=== PATIENT | male | born 1960 | race Caucasian/White ===

== ENCOUNTER 2017-05-08 12:31 | Outpatient (CLI) | payer OTHER | END 2017-05-08 12:35 | disposition home or self-care (01) | LOC: LAB 12:31 | DX: N20.0 Calculus of kidney (principal) ==

== ENCOUNTER 2019-09-15 12:56 | Outpatient (CLI) | payer OTHER | END 2019-09-15 13:02 | disposition home or self-care (01) | LOC: RAD 12:56 | PROVIDERS: ATTEND Urology | DX: N20.0 Calculus of kidney (principal); S62.001D Unspecified fracture of navicular [scaphoid] bone of right wrist, subsequent encounter for fracture with routine healing ==

== ENCOUNTER 2020-12-02 13:22 | Outpatient (CLI) | payer OTHER | END 2020-12-02 13:24 | disposition home or self-care (01) | LOC: RAD 13:22 | PROVIDERS: ATTEND Urology | DX: N20.0 Calculus of kidney (principal) ==

== ENCOUNTER 2021-06-23 12:20 | Outpatient (CLI) | payer OTHER | END 2021-06-23 12:35 | disposition home or self-care (01) | LOC: RAD 12:20 | PROVIDERS: ATTEND General Practice | DX: I10 Essential (primary) hypertension (principal) ==

== ENCOUNTER 2022-11-15 11:26 | Outpatient (CLI) | payer OTHER | END 2022-11-15 11:33 | disposition home or self-care (01) | LOC: RAD 11:26 | PROVIDERS: ATTEND Specialist | DX: R05.3 Chronic cough (principal) ==

== ENCOUNTER 2023-05-02 12:18 | Outpatient (CLI) | payer OTHER | END 2023-05-02 12:26 | disposition home or self-care (01) | LOC: RAD 12:18 | PROVIDERS: ATTEND Urology | DX: N20.0 Calculus of kidney (principal) ==

== ENCOUNTER → 2023-09-25 11:21 | Outpatient (CLI) | payer OTHER | END | disposition home or self-care (01) | LOC: LAB 11:21 | PROVIDERS: ATTEND Urology | DX: R97.20 Elevated prostate specific antigen [PSA] (principal) ==

== ENCOUNTER 2023-10-11 07:14 | Outpatient (CLI) | payer OTHER | END 2023-10-11 07:22 | disposition home or self-care (01) | LOC: SONOGRAMA 07:14 | PROVIDERS: ATTEND Urology | DX: C61 Malignant neoplasm of prostate (principal); N40.1 Benign prostatic hyperplasia with lower urinary tract symptoms; R97.20 Elevated prostate specific antigen [PSA] ==

== ENCOUNTER 2023-10-16 11:56 | Emergency (ER) | payer OTHER ==
[~2023-10-16] VITALS: Ht 170.2 cm; Wt 81.2 kg
[2023-10-16] MEDS ORDERED: AVAPRO75 MG (12:02)
[2023-10-16] MEDS ORDERED: PROTONIX20 MG (12:03)
[2023-10-16] MEDS ORDERED: TAMS0.4C PO (12:03)
[2023-10-16] MEDS ORDERED: DOXAZOSIN MESYLA2 MG PO (12:04)
[2023-10-16 13:03] LABS: HEMOGLOBIN 14.8 g/dL (13-16.00); MEAN CELL VOLUME 88.5 fL (80.0-100.00); MEAN CORPUSCULAR HEMOGLOBIN 30.4 pg (27.00-32.0); MEAN CORPUSCULAR HGB CONC 34.3 g/dl (32.0-36.0); PLATELET COUNT 193 K/uL (150-450); RED BLOOD COUNT 4.86 M/uL (4.00-6.00); RED CELL DISTRIBUTION WIDTH 13.3 % (11.5-14.5)
[2023-10-16 13:15] LABS: URINE APPEARANCE Cloudy; URINE BILIRRUBIN Negative (NEGATIVE); URINE BLOOD Moderate; URINE COLOR Yellow; URINE GLUCOSE Negative (NEGATIVE); URINE KETONE Negative (NEGATIVE); URINE LEUKOCYTE Moderate; URINE NITRATE Positive; URINE PROTEIN Negative (NEGATIVE); URINE UROBILINOGEN 0.2 E.U./dl
[2023-10-16 13:16] LABS: URINE EPITHELIAL CELLS 5.7 uL (0.0-38.8); URINE RBC 62.1 uL (0.0-20.8); URINE WBC 1167.8 uL (0.0-23.2)
[2023-10-16 13:19] LABS: URINE BACTERIA > 9821.5 uL (0.0-1933); URINE CAST 0.61 uL (0.0-1.40)
[2023-10-16 13:25] LABS: CALCIUM 9.8 mg/dL (8.5-10.1); CREATININE SERUM 0.99 mg/dL (0.70-1.30); GFR 76.1; POTASSIUM 4.47 mEq/L (3.5-5.1)
[2023-10-16] MEDS ORDERED: LEVOFLOXACIN750 MG PO (13:54)
== END 2023-10-16 13:59 | disposition home or self-care (01) ==
LOC: ER 11:57
PROVIDERS: General Practice
DX: R53.81 Other malaise (principal); N39.0 Urinary tract infection, site not specified; R50.9 Fever, unspecified; R05.9 Cough, unspecified; Z20.822 Contact with and (suspected) exposure to COVID-19; I10 Essential (primary) hypertension

== ENCOUNTER 2024-01-02 13:20 | Outpatient (CLI) | payer OTHER ==
[~2024-01-02 13:20] MED LIST: AVAPRO75 MG; DOXAZOSIN MESYLA2 MG PO; LEVOFLOXACIN750 MG PO; PROTONIX20 MG; TAMS0.4C PO
== END 2024-01-02 13:58 | disposition home or self-care (01) ==
LOC: RAD 13:20
PROVIDERS: ATTEND Internal Medicine Pulmonary Disease
DX: J45.909 Unspecified asthma, uncomplicated (principal); J31.0 Chronic rhinitis

== ENCOUNTER 2024-01-15 09:57 | Outpatient (CLI) | payer OTHER | END 2024-01-15 09:58 | disposition home or self-care (01) | LOC: NUCLEAR 09:57 | PROVIDERS: ATTEND Urology | DX: C61 Malignant neoplasm of prostate (principal) ==

== ENCOUNTER 2024-02-13 07:30 | Inpatient (IN) | payer OTHER ==
[~2024-02-13] VITALS: Ht 170.2 cm; Wt 85.7 kg
[~2024-02-13 07:30] MED LIST changes: -AVAPRO75 MG; +AVAPRO75 MG PO
[2024-02-13] MEDS ORDERED: DESVENLAFAXINE50 MG PO (08:24)
[2024-02-13] MEDS ORDERED: LAMOTRIGINE100 MG PO (08:24)
[2024-02-13 08:39] LABS: PH,URINE 6.5 (5.0-8.0); URINE APPEARANCE Clear; URINE BILIRRUBIN Negative (NEGATIVE); URINE BLOOD Negative; URINE COLOR Yellow; URINE GLUCOSE Negative (NEGATIVE); URINE KETONE Negative (NEGATIVE); URINE LEUKOCYTE Negative; URINE NITRATE Negative; URINE PROTEIN Negative (NEGATIVE); URINE UROBILINOGEN 0.2 E.U./dl
[2024-02-13 08:42] LABS: URINE RBC 19.2 uL (0.0-20.8); URINE WBC 8.9 uL (0.0-23.2)
[2024-02-13 08:46] LABS: HEMATOCRIT 42.5 % (39.0-48.0); HEMOGLOBIN 14.6 g/dL (13-16.00); MEAN CELL VOLUME 88.2 fL (80.0-100.00); MEAN CORPUSCULAR HEMOGLOBIN 30.3 pg (27.00-32.0); MEAN CORPUSCULAR HGB CONC 34.4 g/dl (32.0-36.0); PLATELET COUNT 202 K/uL (150-450); RED BLOOD COUNT 4.82 M/uL (4.00-6.00); RED CELL DISTRIBUTION WIDTH 13.8 % (11.5-14.5)
[2024-02-13 08:46] LABS: URINE BACTERIA 3.6 uL (0.0-1933); URINE EPITHELIAL CELLS 0.1 uL (0.0-38.8)
[2024-02-13 08:49] VITALS: BP 140/87
[2024-02-13 09:11] LABS: INR 0.97; PARTIAL THROMBOPLASTIN TIME 27.6 SECONDS (22.0-34.0); PROTHROMBIN TIME 10.6 SECONDS (9.0-11.5)
[2024-02-13 09:33] LABS: ALBUMIN 3.9 gm/dL (3.4-5.0); BILIRUBIN TOTAL 0.45 mg/dL (0.3-1.2); CALCIUM 9.4 mg/dL (8.5-10.1); CREATININE SERUM 0.87 mg/dL (0.70-1.30); GFR 88.06; GLOBULINA 3.4 G/DL (2.4-3.5); POTASSIUM 4.16 mEq/L (3.5-5.1); TOTAL PROTEIN 7.3 gm/dL (6.4-8.2)
[2024-02-13 09:43] LABS: RH POSITIVE
[2024-02-21] MEDS ORDERED: DEXTROSE 5 %-0.45 % SOD CHLORD 1,000 ML IV SCH (10:23)
[2024-02-21] MEDS ORDERED: OxyCODONE HCL/APAP UD (PERCOCET) PO PRN (10:30)
[2024-02-21] MEDS ORDERED: CEFAZOLIN SODIUM 1,000 MG in 0.9 % SODIUM CHLORIDE 50 ML IV ONE (12:30)
[2024-02-21] MEDS ORDERED: ENOXAPARIN SODIUM 40 MG/0.4 ML SYRINGE SUBCUTANEO ONE (12:30)
[2024-02-21] MEDS ORDERED: CHLORHEXIDINE GLUCONATE 120 ML BOTTLE TOP ONE (13:00)
[2024-02-21] MEDS ORDERED: CEFAZOLIN SODIUM 1,000 MG VIAL IV SCH (17:00)
[2024-02-21] MEDS ORDERED: SIMETHICONE 125 MG CAPSULE PO SCH (17:00)
[2024-02-21] MEDS ORDERED: DOCUSATE SODIUM 100MG CAP PO SCH (17:00)
[2024-02-21] MEDS ORDERED: ONDANSETRON HCL 2 MG/ML VIAL IV SCH (17:00)
[2024-02-21] MEDS ORDERED: FAMOtidine 20 MG TABLET PO SCH (17:00)
[2024-02-21] MEDS ORDERED: SUGAMMADEX SODIUM 200 MG/2 ML VIAL IV ONE (17:15)
[2024-02-21] MEDS ORDERED: MORPHINE SULFATE 4 MG/ML VIAL IV ONE (17:25)
[2024-02-21 21:56] VITALS: BP 158/74; O2SAT 98
[2024-02-22 01:08] VITALS: BP 143/85; O2SAT 98
[2024-02-22 09:02] VITALS: BP 126/73; O2SAT 95
[2024-02-22 09:03] LABS: CALCIUM 8.5 mg/dL (8.5-10.1); CREATININE SERUM 0.72 mg/dL (0.70-1.30); GFR 109.56; POTASSIUM 4.07 mEq/L (3.5-5.1)
[2024-02-22 09:20] LABS: HEMATOCRIT 40.6 % (39.0-48.0); HEMOGLOBIN 14.1 g/dL (13-16.00); MEAN CELL VOLUME 87.6 fL (80.0-100.00); MEAN CORPUSCULAR HEMOGLOBIN 30.5 pg (27.00-32.0); MEAN CORPUSCULAR HGB CONC 34.8 g/dl (32.0-36.0); PLATELET COUNT 203 K/uL (150-450); RED BLOOD COUNT 4.63 M/uL (4.00-6.00); RED CELL DISTRIBUTION WIDTH 13.5 % (11.5-14.5)
[2024-02-22] MEDS ORDERED: ENOXAPARIN SODIUM 40 MG/0.4 ML SYRINGE SUBCUTANEO ONE (11:15)
[2024-02-22 16:29] VITALS: BP 144/72; O2SAT 100
[2024-02-23 00:29] VITALS: BP 132/80; O2SAT 96
[2024-02-23 08:00] VITALS: BP 141/74; O2SAT 96
== END 2024-02-23 13:00 | disposition home or self-care (01) | DRG 708 ==
LOC: O/R 02-21 05:50 → SURH 02-21 07:30
PROVIDERS: ADMIT Urology; ATTEND Urology
PROC: 0VT04ZZ Resection of Prostate, Percutaneous Endoscopic Approach (ICD-10-PCS; principal; 2024-02-23)
DX: C61 Malignant neoplasm of prostate (principal)

== ENCOUNTER 2024-05-14 17:20 | Emergency (ER) | payer OTHER ==
[~2024-05-14] VITALS: Ht 170.2 cm; Wt 81.2 kg
[~2024-05-14 17:20] MED LIST changes: +DESVENLAFAXINE50 MG PO; +LAMOTRIGINE100 MG PO
[2024-05-14 18:30] LABS: HEMOGLOBIN 13.9 g/dL (13-16.00); MEAN CELL VOLUME 85.8 fL (80.0-100.00); MEAN CORPUSCULAR HEMOGLOBIN 29.8 pg (27.00-32.0); MEAN CORPUSCULAR HGB CONC 34.8 g/dl (32.0-36.0); PLATELET COUNT 225 K/uL (150-450); RED BLOOD COUNT 4.66 M/uL (4.00-6.00); RED CELL DISTRIBUTION WIDTH 13.7 % (11.5-14.5)
== END 2024-05-14 20:22 | disposition home or self-care (01) ==
LOC: ER 17:22
PROVIDERS: Emergency Medicine
DX: R53.81 Other malaise (principal); A09 Infectious gastroenteritis and colitis, unspecified; I10 Essential (primary) hypertension